=== PATIENT | male | born 1950 | race Caucasian/White ===

== ENCOUNTER 2023-04-17 16:13 | Day surgery (SDC) | payer OTHER ==
[2023-04-17] MEDS ORDERED: Depo-Medrol 40 MG/ML IM ONE (16:14)
[2023-04-17] MEDS ORDERED: XYLOCAINE 1% HCL 20 ML MDV IJ ONE (16:14)
[2023-04-17] MEDS ORDERED: LIDOCAINE HCL 2% 100 MG/5 ML IJ ONE (16:14)
[2023-04-17] MEDS ORDERED: Lactated Ringers 1,000 ML IV ONE (18:05)
--- NOTE | 2023-04-17 20:51 | XRAY ---
Indication: Bilateral L4-S1 MBB. Intraoperative fluoroscopy provided for 32 seconds. 6 digital spot images submitted for interpretation demonstrates posterior needle tips projecting over the expected left and right L4-S1 nerve roots. Correlate with intraoperative findings/report.
--- NOTE | 2023-04-18 09:54 | XRAY ---
32 seconds of fluoroscopy was used in surgery for a bilateral L4-S1 MBB.
== END 2023-04-17 18:38 | disposition home or self-care (01) ==
LOC: SDC-PAIN 16:13
PROVIDERS: ATTEND Psychiatry & Neurology Pain Medicine
DX: M47.816 Spondylosis without myelopathy or radiculopathy, lumbar region (principal); E11.9 Type 2 diabetes mellitus without complications; Z79.899 Other long term (current) drug therapy
CPT/HCPCS: 64493; 64494; 72020; 77002; 82947; J1030